=== PATIENT | female | born 1995 | race Caucasian/White ===

== ENCOUNTER → 2017-12-23 | Outpatient (CLI) | payer OTHER ==
[~2017-12-23] MED LIST: GADOBENATE 529MG/1ML 15ML VIAL IVP ONE; MULT1CAP41 PO
--- NOTE | 2017-12-24 02:45 | RADIOLOGY IMAGING REPORT ---
FACILITY: [facility] - [place] PATIENT NAME: Carmen Acosta : 1995 MR: [id number] V: [id number] EXAM DATE: ORDERING PHYSICIAN: ROSEMARY BROOKS TECHNOLOGIST: Location: [facility] - [place] Patient: Carmen Acosta : 1995 Visit/Account:[id number] Date of Sevice: 12/23/2017 MRI left foot with and without contrast Indication: Mass. Further evaluate. Comparison: None available Technique: Sagittal and coronal STIR and T1-weighted fat saturated postcontrast, axial T1 weighted fa t saturated pre-and postcontrast, T1-weighted, and T2-weighted fat saturated images were obtained thr ough the left foot. A total of 11 mL IV MultiHance contrast was administered. Patient placed an MRI c ompatible markers in the region of clinical concern. Findings: The MRI compatible markers are located along the dorsal margin of the forefoot. These overlie the fif th metatarsal head. Below the markers, there is focal thickening of the skin. There is an ill-defined area of low T1 signal which appears isointense to muscle on the T1 sequence. This area appears hyper intense on the T2-weighted sequences. This area of abnormal signal is ill-defined. This signal appea rs confined to the skin in the subcutaneous tissues. There is no involvement of the underlying extens or tendons or the extensor tendon sheaths. No involvement of the interosseous musculature. No involve ment of the underlying fifth metatarsal or the fifth metatarsophalangeal joint is suggested. This ill-defined signal in 3 planes measures approximately 2.0 cm from lateral to medial, 0.4 cm in t hickness, and 2.7 cm from proximal to distal. Following the administration of gadolinium, this area d iffusely enhances. No well-defined masslike enhancement is present. This appears to represent a diffu se soft tissue enhancement type pattern. No other areas of enhancement are seen. No other focal abnor mality is seen within the forefoot. The forefoot joint spaces are maintained. The forefoot and visualized midfoot marrow pattern is unrem arkable. Intrinsic musculature the foot is normal. IMPRESSION: 1. Ill-defined region of abnormal signal and enhancement corresponds to the reported palpable mass al christel the dorsal margin of the fifth metatarsal head of the left forefoot. No well-defined mass is seen with MR imaging. Differential at this point is broad and would include a vascular lesion such as a s mall vessel hemangioma. This could also be inflammatory such as in the setting of adventitial bursiti s or cellulitis. Clinical correlation is necessary. There is no involvement of the underlying osseous structures and there is no extension into the deep soft tissues. Report Dictated By: Som Suero at 12/24/2017 1:15 AM Report E-Signed By: Som Suero at 12/24/2017 1:32 AM WSN:[id number]
== END ==
LOC: MRI 01:26
PROVIDERS: ATTEND Podiatrist Foot & Ankle Surgery
DX: R22.42 Localized swelling, mass and lump, left lower limb (principal)
CPT/HCPCS: 73720; A9577